=== PATIENT | male | born 1995 | race Caucasian/White ===

== ENCOUNTER 2018-05-02 11:17 | Outpatient (CLI) | payer MEDICAID, OTHER ==
[2018-05-02 19:26] LABS: ALBUMIN 4.3 g/dL (3.2-5.5); ALBUMIN/GLOBULIN RATIO 1.1 (1.0-2.2); ALKALINE PHOSPHATASE 126 IU/L (42-121); ALT ALANINE AMINOTRANSFERASE 27 IU/L (10-60); AST ASPARTATE AMINOTRANSFERASE 27 IU/L (10-42); BILIRUBIN,TOTAL 0.3 mg/dL (0.2-1.0); BUN - BLOOD UREA NITROGEN 25 mg/dL (6-20); CALCIUM 9.4 mg/dL (8.5-10.3); CARBON DIOXIDE - CO2 26 mmol/L (21-32); CHLORIDE 105 mmol/L (101-111); CHOL/HDL RATIO 2.6 (<5.0); CHOLESTEROL 164 mg/dL; CREATININE 0.9 mg/dL (0.6-1.2); GFR - MDRD 104 (>89); GLUCOSE 93 mg/dL (70-100); HDL CHOLESTEROL 63 mg/dL; LDL CHOLESTEROL,CALCULATED 83 mg/dL; LDL/HDL RATIO 1.3 (<3.6); SODIUM 139 mmol/L (135-145); TOTAL PROTEIN 8.3 g/dL (6.7-8.2); VLDL CHOLESTEROL 18 mg/dL
[2018-05-02 19:35] LABS: HB2 TOTAL 15.5 g/dL; HEMOGLOBIN A1C 0.51 g/dL; HEMOGLOBIN A1C % 5.2 % (4.6-6.2)
== END 2018-05-02 23:59 | disposition home or self-care (01) ==
LOC: LAB.N 11:17
PROVIDERS: ATTEND Licensed Practical Nurse
DX: Z79.899 Other long term (current) drug therapy (principal)
CPT/HCPCS: 36415; 80053; 80061; 83036; 83721

== ENCOUNTER 2019-03-04 08:00 | Outpatient (CLI) | payer MEDICAID ==
[2019-03-04 17:13] LABS: H. PYLORIS ANTIGEN STL POSITIVE (Negative)
== END 2019-03-04 23:59 | disposition home or self-care (01) ==
LOC: LAB.R 08:00
PROVIDERS: ATTEND Family Medicine
DX: K52.9 Noninfective gastroenteritis and colitis, unspecified (principal)
CPT/HCPCS: 81599; 82274; 83630; 87045; 87046; 87177; 87209; 87329; 87338; 87493

== ENCOUNTER 2020-02-03 15:47 | Emergency (ER) | payer MEDICARE ==
[2020-02-03 16:14] LABS: BASOPHILS # (AUTO) 0.1 10^3/uL (0.0-0.1); BASOPHILS % (AUTO) 0.8 %; EOSINOPHILS # (AUTO) 0.1 10^3/uL (0.0-0.7); EOSINOPHILS % (AUTO) 1.3 %; HGB - HEMOGLOBIN 13.8 g/dL (14.0-18.0); LYMPHOCYTES % (AUTO) 12.6 %; MEAN CORPUSCULAR HEMOGLOBIN 27.5 pg (27.0-31.0); MEAN CORPUSCULAR HGB CONC 32.5 g/dL (32.0-36.0); MEAN CORPUSCULAR VOLUME 84.8 fL (80.0-94.0); MEAN PLATELET VOLUME 8.7 fL (7.4-11.4); MONOCYTES # (AUTO) 0.5 10^3/uL (0.0-1.0); MONOCYTES % (AUTO) 6.3 %; NEUTROPHILS # (AUTO) 6.1 10^3/uL (1.5-6.6); NEUTROPHILS % (AUTO) 78.6 %; PLT - PLATELET COUNT 233 10^3/uL (130-450); RED BLOOD COUNT 5.01 10^6/uL (4.70-6.10); RED CELL DISTRIBUTION WIDTH 12.8 % (12.0-15.0); WHITE BLOOD COUNT 7.8 x10^3/uL (4.8-10.8)
[2020-02-03 16:30] LABS: ACETAMINOPHEN < 10 ug/mL (10-30); ALBUMIN 4.8 g/dL (3.2-5.5); ALBUMIN/GLOBULIN RATIO 1.4 (1.0-2.2); ALKALINE PHOSPHATASE 73 IU/L (42-121); ALT ALANINE AMINOTRANSFERASE 14 IU/L (10-60); AST ASPARTATE AMINOTRANSFERASE 18 IU/L (10-42); BILIRUBIN,TOTAL 0.7 mg/dL (0.2-1.0); BUN - BLOOD UREA NITROGEN 15 mg/dL (6-20); CALCIUM 9.3 mg/dL (8.5-10.3); CARBON DIOXIDE - CO2 23 mmol/L (21-32); CHLORIDE 105 mmol/L (101-111); CREATININE 1.1 mg/dL (0.6-1.2); GLUCOSE 89 mg/dL (70-100); LIPASE 28 U/L (22-51); SALICYLATE < 6.0 mg/dL; SODIUM 139 mmol/L (135-145); TOTAL PROTEIN 8.3 g/dL (6.7-8.2)
--- NOTE | 2020-02-03 16:59 | ED Physician Documentation ---
History of Present Illness - Stated complaint Stated Complaint: MHE - Chief complaint Chief Complaint: MHE - History obtained from History obtained from: Patient, Family (mom) - Additonal information Additional information: 24-year-old with history of schizophrenia tried overdosing by taking 20 Risperdal about midnight last night. [place] sleepy but otherwise no ill effects. Would like to be hospitalized. Review of Systems Ten Systems: 10 systems reviewed and negative Constitutional: reports: Reviewed and negative Nose: reports: Reviewed and negative Throat: reports: Reviewed and negative Cardiac: reports: Reviewed and negative Respiratory: reports: Reviewed and negative PD PAST MEDICAL HISTORY - Present Medications Home Medications: Ambulatory Orders Medication Instructions Recorded Confirmed risperiDONE [Risperidone] 3 mg PO BID 02/03/20 02/03/20 - Allergies Allergies/Adverse Reactions: Allergies Allergy/AdvReac Type Severity Reaction Status Date / Time No Known Drug Allergies Allergy Verified 02/03/20 20:14 PD ED PE NORMAL - Vitals Vital signs reviewed: Yes - General General: Alert and oriented X 3 (Blunted affect, poor eye contact) - HEENT HEENT: PERRL - Neck Neck: Supple, no meningeal sign, No bony TTP - Cardiac Cardiac: RRR, No murmur - Respiratory Respiratory: No respiratory distress, Clear bilaterally - Abdomen Abdomen: Soft, Non tender - Back Back: No CVA TTP, No spinal TTP - Derm Derm: Normal color, Warm and dry - Extremities Extremities: No edema, No calf tenderness / cord - Neuro Neuro: Alert and oriented X 3, Normal speech Results - Vitals Vitals: Vital Signs - 24 hr 02/04/20 02/04/20 06:48 14:00 Temperature 36.5 C Heart Rate 59 L 68 Respiratory 14 16 Rate Blood Pressure 101/59 L 117/83 H O2 Saturation 98 100 Oxygen O2 Source Room air - EKG (time done) 1801 Rate: Rate (enter#) (88) Rhythm: NSR Bouton: Normal Intervals: Normal OK QRS: Normal Ischemia: Normal ST segments Computer interpretation: Agree with computer - Labs Labs: Laboratory Tests 02/03/20 02/03/20 02/03/20 16:08 16:08 16:08 WBC 7.8 RBC 5.01 Hgb 13.8 L Hct 42.5 MCV 84.8 MCH 27.5 MCHC 32.5 RDW 12.8 Plt Count 233 MPV 8.7 Neut # (Auto) 6.1 Lymph # (Auto) 1.0 L Bartholomew # (Auto) 0.5 Eos # (Auto) 0.1 Baso # (Auto) 0.1 Absolute Nucleated RBC 0.00 Nucleated RBC % 0.0 Sodium 139 Potassium 3.7 Chloride 105 Carbon Dioxide 23 Anion Gap 11.0 BUN 15 Creatinine 1.1 Estimated GFR (MDRD) 81 L Glucose 89 Calcium 9.3 Total Bilirubin 0.7 AST 18 ALT 14 Alkaline Phosphatase 73 Total Protein 8.3 H Albumin 4.8 Globulin 3.5 Albumin/Globulin Ratio 1.4 Lipase 28 TSH 1.03 Urine Color Urine Clarity Urine pH Ur Specific [place] Urine Protein Urine Glucose (UA) Urine Ketones Urine Occult Blood Urine Nitrite Urine Bilirubin Urine Urobilinogen Ur Leukocyte Esterase Ur Microscopic Review Urine Culture Comments Salicylates < 6.0 Urine Opiates Screen Ur Oxycodone Screen Urine Methadone Screen Ur Propoxyphene Screen Acetaminophen < 10 L Ur Barbiturates Screen Ur Tricyclics Screen Ur Phencyclidine Scrn Ur Amphetamine Screen U Methamphetamines Scrn U Benzodiazepines Scrn Urine Cocaine Screen U Cannabinoids Screen Ethyl Alcohol < 5.0 02/03/20 16:16 WBC RBC Hgb Hct MCV MCH MCHC RDW Plt Count MPV Neut # (Auto) Lymph # (Auto) Bartholomew # (Auto) Eos # (Auto) Baso # (Auto) Absolute Nucleated RBC Nucleated RBC % Sodium Potassium Chloride Carbon Dioxide Anion Gap BUN Creatinine Estimated GFR (MDRD) Glucose Calcium Total Bilirubin AST ALT Alkaline Phosphatase Total Protein Albumin Globulin Albumin/Globulin Ratio Lipase TSH Urine Color YELLOW Urine Clarity CLEAR Urine pH 6.0 Ur Specific [place] 1.025 Urine Protein NEGATIVE Urine Glucose (UA) NEGATIVE Urine Ketones 15 H Urine Occult Blood NEGATIVE Urine Nitrite NEGATIVE Urine Bilirubin NEGATIVE Urine Urobilinogen 0.2 (NORMAL) Ur Leukocyte Esterase NEGATIVE Ur Microscopic Review NOT INDICATED Urine Culture Comments NOT INDICATED Salicylates Urine Opiates Screen NEGATIVE Ur Oxycodone Screen NEGATIVE Urine Methadone Screen NEGATIVE Ur Propoxyphene Screen NEGATIVE Acetaminophen Ur Barbiturates Screen NEGATIVE Ur Tricyclics Screen NEGATIVE Ur Phencyclidine Scrn NEGATIVE Ur Amphetamine Screen NEGATIVE U Methamphetamines Scrn NEGATIVE U Benzodiazepines Scrn NEGATIVE Urine Cocaine Screen NEGATIVE U Cannabinoids Screen NEGATIVE Ethyl Alcohol PD MEDICAL DECISION MAKING - ED course ED course: Patient is medically stable for psychiatric evaluation Seen by social work, referral sent to [facility]. We called Min[facility] fre[facility] a little after 9 PM and was told that there was no clinician on overnight and they would not be able to review the chart tonight. Departure - Departure Disposition: [facility] Hosp/Unit DC/Xfer Clinical Impression: Depression Qualifiers: Depression Type: major depressive disorder Major depression recurrence: recurrent Active/Remission status: currently active Major depression episode severity: moderate Qualified Code(s): F33.1 - Major depressive disorder, recurrent, moderate Schizophrenia Qualifiers: Schizophrenia type: unspecified Qualified Code(s): F20.9 - Schizophrenia, unspecified Condition: Stable Discharge Date/Time: 02/04/20 15:53
[2020-02-03 17:11] LABS: MUDS CUTOFF CONCENTRATIONS CUTOFF CONC BELOW:
[2020-02-03 17:18] LABS: BILIRUBIN,URINE NEGATIVE (NEGATIVE); GLUCOSE, URINE (UA) NEGATIVE (NEGATIVE); KETONES,URINE (UA) 15 mg/dL (NEGATIVE); LEUKOCYTE ESTERASE, URINE NEGATIVE (NEGATIVE); NITRITE,URINE NEGATIVE (NEGATIVE); OCCULT BLOOD,URINE NEGATIVE (NEGATIVE); PROTEIN,URINE NEGATIVE (NEGATIVE); UROBILINOGEN,URINE 0.2 (NORMAL) E.U./dL (NORMAL)
[2020-02-03 17:19] LABS: CLARITY,URINE CLEAR (CLEAR)
[2020-02-03 17:32] LABS: AMPHETAMINE SCREEN,URINE NEGATIVE (NEGATIVE); BENZODIAZEPINES SCREEN, URINE NEGATIVE (NEGATIVE); COCAINE SCREEN URINE NEGATIVE (NEGATIVE); METHADONE SCREEN, URINE NEGATIVE (NEGATIVE); METHAMPHETAMINES SCREEN, URINE NEGATIVE (NEGATIVE); OPIATE SCREEN, URINE NEGATIVE (NEGATIVE); OXYCODONE SCREEN, URINE NEGATIVE (NEGATIVE); PROPOXYPHENE SCREEN, URINE NEGATIVE (NEGATIVE); TRICYCLIC ANTIDEPRESSANT,URINE NEGATIVE (NEGATIVE)
--- NOTE | 2020-02-04 12:28 | ED Physician Documentation ---
ED Addendum - Addendum Addendum: 02/04/20 12:27 Patient was signed out to me at change of shift by off going emergency [address], pending group social worker evaluation and final disposition. Patient was reevaluated by social work and placement was arranged at [facility]. Patient is going voluntarily and has been stable throughout his stay in the emergency department.
[2020-02-04 15:19] VITALS: BP 117/83
== END 2020-02-04 15:53 ==
LOC: EDBD → ED 15:47 → MERGE 15:47 → ED 02-04 15:53
DX: F33.1 Major depressive disorder, recurrent, moderate (principal); F20.9 Schizophrenia, unspecified
CPT/HCPCS: 36415; 80053; 80306; 80307; 80320; 80329; 81001; 81003; 83690; 84443; 85025; 87086; 93005; 99283; 99285

== ENCOUNTER 2020-10-31 08:00 | Outpatient (CLI) | payer MEDICARE, MEDICAID ==
[2020-10-31 19:09] LABS: H. PYLORIS ANTIGEN STL NEGATIVE (Negative)
== END 2020-10-31 23:59 | disposition home or self-care (01) ==
LOC: LAB.R 08:00
PROVIDERS: ATTEND Nurse Practitioner Family
DX: A04.8 Other specified bacterial intestinal infections (principal); B96.81 Helicobacter pylori [H. pylori] as the cause of diseases classified elsewhere
CPT/HCPCS: 87338

== ENCOUNTER 2020-11-14 22:30 | Inpatient (IN) | payer MEDICARE, MEDICAID ==
--- NOTE | 2020-11-14 23:00 | ED Physician Documentation ---
PD HPI ABD PAIN - Stated complaint Stated Complaint: ABD PX - Chief complaint Chief Complaint: Abd Pain - History obtained from History obtained from: Patient, Family (mom) - History of Present Illness Timing - onset: How many weeks ago (3-4) Timing - duration: Weeks (3-4) Timing - details: Gradual onset, Still present (got worse/consistent the past 1- 2 days, with nausea and increased pain.), Intermittant (for the past 3-4 weeks, timed throughout the day. Less appetite and pain occurs after eating.) Quality: Cramping, Aching, Pain Location: Epigastric, Periumbilical Radiation: No: Chest, Right flank, Upper back Improved by: Position (lying on side) Worsened by: Eating, Palpation Associated symptoms: Nausea, Constipation (He states stools have been firm at times and soft at times. No BM for past 2-3 days.). No: Fever, Vomiting, Diarrhea, Melena, Hematochezia Similar symptoms before: Has not had sx before Recently seen: Not recently seen Review of Systems Constitutional: denies: Fever, Chills, Myalgias Nose: denies: Rhinorrhea / runny nose, Congestion Throat: denies: Sore throat Respiratory: denies: Cough GI: reports: Abdominal Pain, Nausea. denies: Vomiting, Constipation (but has had less stools the past few days, prior to that was soft then firm pattern undulating the past few weeks.), Diarrhea, Bloody / black stool : denies: Dysuria, Frequency Neurologic: reports: Generalized weakness. denies: Near syncope Endocrine: reports: Weight loss (several lbs in the past few weeks.). denies: Easy bruising / bleeding Immunocompromised: denies: Immunocompromised PD PAST MEDICAL HISTORY - Past Medical History Cardiovascular: None Respiratory: None Neuro: None Endocrine/Autoimmune: None GI: None : None HEENT: None Psych: Schizophrenia Musculoskeletal: None Derm: None - Past Surgical History Past Surgical History: Yes HEENT: Other - Present Medications Home Medications: Ambulatory Orders Medication Instructions Recorded Confirmed polyethylene glycoL 3350 [Miralax] 17 gm PO DAILY PRN #10 packet 02/04/16 11/15/20 risperiDONE [Risperidone] 3 mg PO BID 02/03/20 11/15/20 - Allergies Allergies/Adverse Reactions: Allergies Allergy/AdvReac Type Severity Reaction Status Date / Time No Known Drug Allergies Allergy Verified 11/14/20 22:41 - Social History Does the pt smoke?: No Smoking Status: Never smoker Does the pt drink ETOH?: No Does the pt have substance abuse?: No - Immunizations Immunizations are current?: Yes PD ED PE NORMAL - Vitals Vital signs reviewed: Yes - General General: Alert and oriented X 3, Well developed/nourished, Other (having some upper abd pain) - HEENT HEENT: Ears normal, Pharynx benign - Neck Neck: Supple, no meningeal sign, No adenopathy - Cardiac Cardiac: RRR, No murmur - Respiratory Respiratory: Clear bilaterally - Abdomen Abdomen: Soft, Non distended, No organomegaly, Other (Tender in the epigastric to right upper abdomen. Also some tenderness periumbilical. There is no percussion or rebound tenderness at this time.) - Male Male : Deferred - Rectal Rectal: Deferred - Back Back: No CVA TTP - Derm Derm: Normal color, Warm and dry - Extremities Extremities: No edema, No calf tenderness / cord - Neuro Neuro: Alert and oriented X 3, No motor deficit, Normal speech Eye Opening: Spontaneous Motor: Obeys Commands Verbal: Oriented GCS Score: 15 - Psych Psych: No: Normal affect (somewhat flat, but very pleasant and polite. Defers to mom for answering questions often. ) Results - Vitals Vitals: Vital Signs - 24 hr 11/14/20 11/14/20 11/15/20 22:36 22:41 00:20 Temperature 36.1 C L 36.1 C L Heart Rate 90 90 80 Respiratory 14 14 15 Rate Blood Pressure 124/81 H 124/80 117/80 O2 Saturation 99 99 99 11/15/20 11/15/20 11/15/20 01:05 01:11 01:57 Temperature Heart Rate 88 66 Respiratory 15 15 15 Rate Blood Pressure 124/88 H 104/62 O2 Saturation 99 100 11/15/20 11/15/20 11/15/20 02:43 03:24 03:42 Temperature Heart Rate 72 50 L 50 L Respiratory 15 14 13 Rate Blood Pressure 101/69 111/71 O2 Saturation 100 100 100 11/15/20 04:10 Temperature 37.1 C Heart Rate 62 Respiratory 15 Rate Blood Pressure 115/85 H O2 Saturation 100 Oxygen O2 Source Room air - Labs Labs: Laboratory Tests 11/14/20 11/14/20 11/14/20 23:30 23:30 23:30 WBC 9.4 RBC 4.73 Hgb 13.1 L Hct 40.7 L MCV 86.0 MCH 27.7 MCHC 32.2 RDW 12.2 Plt Count 246 MPV 8.4 Neut # (Auto) 7.7 H Lymph # (Auto) 1.0 L Hughes # (Auto) 0.4 Eos # (Auto) 0.2 Baso # (Auto) 0.1 Absolute Nucleated RBC 0.00 Nucleated RBC % 0.0 ESR 29 H Sodium 139 Potassium 3.8 Chloride 102 Carbon Dioxide 27 Anion Gap 10.0 BUN 20 Creatinine 1.0 Estimated GFR (MDRD) 90 Glucose 121 H Calcium 9.4 Total Bilirubin 0.4 AST 21 ALT 26 Alkaline Phosphatase 79 C-Reactive Protein 2.4 H Total Protein 7.8 Albumin 4.3 Globulin 3.5 Albumin/Globulin Ratio 1.2 Lipase 28 TSH Urine Color Urine Clarity Urine pH Ur Specific [place] Urine Protein Urine Glucose (UA) Urine Ketones Urine Occult Blood Urine Nitrite Urine Bilirubin Urine Urobilinogen Ur Leukocyte Esterase Ur Microscopic Review Urine Culture Comments 11/14/20 11/15/20 23:30 01:00 WBC RBC Hgb Hct MCV MCH MCHC RDW Plt Count MPV Neut # (Auto) Lymph # (Auto) Hughes # (Auto) Eos # (Auto) Baso # (Auto) Absolute Nucleated RBC Nucleated RBC % ESR Sodium Potassium Chloride Carbon Dioxide Anion Gap BUN Creatinine Estimated GFR (MDRD) Glucose Calcium Total Bilirubin AST ALT Alkaline Phosphatase C-Reactive Protein Total Protein Albumin Globulin Albumin/Globulin Ratio Lipase TSH 1.50 Urine Color YELLOW Urine Clarity CLEAR Urine pH 6.0 Ur Specific [place] 1.015 Urine Protein NEGATIVE Urine Glucose (UA) NEGATIVE Urine Ketones NEGATIVE Urine Occult Blood NEGATIVE Urine Nitrite NEGATIVE Urine Bilirubin NEGATIVE Urine Urobilinogen 0.2 (NORMAL) Ur Leukocyte Esterase NEGATIVE Ur Microscopic Review NOT INDICATED Urine Culture Comments NOT INDICATED - Rads (name of study) abd CT Radiology: Prelim report reviewed (gallbladder wall thickening and pericholic fluid/edema. No bowel wall thickening nor acute process. ), See rad report RUQ U/S Radiology: Prelim report reviewed (similar to CT with stone in neck of GB, wall thickening and edema and mild pericholecystic fluid. CBD not enlarged. Normal i ntrahepatic ducts. ), See rad report PD MEDICAL DECISION MAKING - ED course Complexity details: reviewed results (CT showing apparent acute cholecystitis. Ultrasound done to confirm and to evaluate the common bile duct more exactly.), re-evaluated patient, considered differential (Upper abdominal tenderness. Consider immune inflammatory process such as colitis or Crohn's though no family history. Also consider gastritis or gallbladder or pancreatitis. Less likely appendix.), d/w patient, d/w family (mom present in the room) Departure - Departure Disposition: ED Transfer to [facility] Clinical Impression: Acute cholecystitis Abdominal pain Qualifiers: Abdominal location: upper abdomen, unspecified Qualified Code(s): R10.10 - Upper abdominal pain, unspecified Condition: Stable Record reviewed to determine appropriate education?: Yes
[2020-11-14] MEDS ORDERED: SODIUM CHLORIDE 0.9% 1,000 ML IV STA (23:15)
[2020-11-14] MEDS ORDERED: KETOROLAC 15 MG/ML VIAL IVP STA (23:15)
[2020-11-14] MEDS ORDERED: ONDANSETRON 4 MG/2 ML VIAL IVP STA (23:15)
[2020-11-14] MEDS ORDERED: IOVERSOL 320 100 ML VIAL IVP ONE (23:34)
[2020-11-14 23:37] LABS: BASOPHILS # (AUTO) 0.1 10^3/uL (0.0-0.1); BASOPHILS % (AUTO) 0.7 %; EOSINOPHILS # (AUTO) 0.2 10^3/uL (0.0-0.7); EOSINOPHILS % (AUTO) 1.7 %; HCT - HEMATOCRIT 40.7 % (42.0-52.0); HGB - HEMOGLOBIN 13.1 g/dL (14.0-18.0); LYMPHOCYTES % (AUTO) 10.3 %; MEAN CORPUSCULAR HEMOGLOBIN 27.7 pg (27.0-31.0); MEAN CORPUSCULAR HGB CONC 32.2 g/dL (32.0-36.0); MEAN PLATELET VOLUME 8.4 fL (7.4-11.4); MONOCYTES # (AUTO) 0.4 10^3/uL (0.0-1.0); MONOCYTES % (AUTO) 4.5 %; NEUTROPHILS # (AUTO) 7.7 10^3/uL (1.5-6.6); NEUTROPHILS % (AUTO) 82.5 %; PLT - PLATELET COUNT 246 10^3/uL (130-450); RED BLOOD COUNT 4.73 10^6/uL (4.70-6.10); RED CELL DISTRIBUTION WIDTH 12.2 % (12.0-15.0); WHITE BLOOD COUNT 9.4 x10^3/uL (4.8-10.8)
[2020-11-14 23:55] LABS: ALBUMIN 4.3 g/dL (3.2-5.5); ALBUMIN/GLOBULIN RATIO 1.2 (1.0-2.2); BILIRUBIN,TOTAL 0.4 mg/dL (0.2-1.0); CALCIUM 9.4 mg/dL (8.5-10.3); CRP - C-REACTIVE PROTEIN 2.4 mg/dL (0-1.0); POTASSIUM 3.8 mmol/L (3.5-5.0); TOTAL PROTEIN 7.8 g/dL (6.7-8.2)
[2020-11-15] MEDS ORDERED: IOVERSOL 320 100 ML VIAL IVP ONE (00:30)
[2020-11-15 01:16] LABS: BILIRUBIN,URINE NEGATIVE (NEGATIVE); GLUCOSE, URINE (UA) NEGATIVE (NEGATIVE); KETONES,URINE (UA) NEGATIVE (NEGATIVE); LEUKOCYTE ESTERASE, URINE NEGATIVE (NEGATIVE); NITRITE,URINE NEGATIVE (NEGATIVE); OCCULT BLOOD,URINE NEGATIVE (NEGATIVE); PROTEIN,URINE NEGATIVE (NEGATIVE); UROBILINOGEN,URINE 0.2 (NORMAL) E.U./dL (NORMAL)
[2020-11-15 01:18] LABS: CLARITY,URINE CLEAR (CLEAR)
[2020-11-15] MEDS ORDERED: PIPERACILLIN/TAZOBACTAM 3.375 GM in SODIUM CHLORIDE 0.9% MINIBAG 100 ML IV STA (03:57)
[2020-11-15] MEDS ORDERED: ENOXAPARIN 40 MG/0.4 ML SYRINGE SUBQ SCH (04:20)
[2020-11-15] MEDS ORDERED: ONDANSETRON 4 MG/2 ML VIAL IVP PRN ×3 (04:22→20:03)
[2020-11-15] MEDS ORDERED: HYDROmorphone 0.5 MG/0.5 ML SYRINGE IVP PRN ×3 (04:23→20:03)
[2020-11-15] MEDS: D5NS W/20 MEQ KCL 1,000 ML IV SCH ×2 (05:05→20:58)
[2020-11-15] MEDS: ACETAMINOPHEN 1,000 MG/100 ML 100 ML IV SCH ×3 (05:11→20:44)
[2020-11-15] MEDS: methocarbamoL 500 MG TABLET PO SCH ×3 (05:14→20:43)
[2020-11-15 05:58] LABS: ALBUMIN/GLOBULIN RATIO 1.1 (1.0-2.2); BILIRUBIN,TOTAL 0.7 mg/dL (0.2-1.0); CALCIUM 9.1 mg/dL (8.5-10.3); CREATININE 0.9 mg/dL (0.6-1.2); TOTAL PROTEIN 7.5 g/dL (6.7-8.2)
[2020-11-15] MEDS: PIPERACILLIN/TAZOBACTAM 3.375 GM in SODIUM CHLORIDE 0.9% MINIBAG 100 ML IV SCH ×3 (06:34→22:35)
--- NOTE | 2020-11-15 07:10 | CT Report ---
PROCEDURE: Abdomen/Pelvis W INDICATIONS: Abdominal pain, acute, nonlocalized CONTRAST: IV CONTRAST: Optiray 320 ml: 100 PO CONTRAST: *NO PO CONTRAST TECHNIQUE: After the administration of weight appropriate dose of intravenous contrast, 5 mm thick sections acqu ired from the diaphragms to the symphysis. 5 mm thick coronal and sagittal reformats were acquired. For radiation dose reduction, the following was used: automated exposure control, adjustment of mA and/or kV according to patient size. COMPARISON: None. FINDINGS: Image quality: Excellent. ABDOMEN: Lung bases: Lung bases are clear. Heart size is normal. Solid organs: Liver and spleen are normal in size and enhancement. Gallbladder demonstrates wall th ickening and mild pericholecystic stranding. No evidence for gallstones. Biliary system is non dilat ed. Pancreas enhances normally. No adrenal nodules. Kidneys demonstrate normal size and enhancemen t, without hydronephrosis. Visualized course of the bilateral ureters are normal. No hydroureter. Peritoneum and bowel: Bowel loops demonstrate normal wall thickness and caliber. No free fluid or a ir. Normal appendix. Nodes and vessels: No retroperitoneal or mesenteric adenopathy by size criteria. Aorta and inferior vena cava are normal in size. Miscellaneous: No ventral hernias. PELVIS: Genitourinary: Bladder wall thickness is normal. Miscellaneous: No inguinal hernias or adenopathy. Bones: No suspicious bony lesions. No acute vertebral body compression fractures. IMPRESSION: 1. Abnormal gallbladder wall thickening and pericholecystic inflammatory changes suggestive of acute cholecystitis. Consider further evaluation with ultrasound. 2. Normal appendix. No significant discrepancy with initial interpretation by overnight radiologist. Reviewed by: Robbie Brown MD on 11/15/2020 7:08 AM PDT Approved by: Robbie Brown MD on 11/15/2020 7:08 AM PDT Station ID: [id number]
--- NOTE | 2020-11-15 07:46 | SURGERY HX AND PHYSICAL(T) ---
Surgical History & Physical - Chief Complaint/HPI Chief Complaint: Abdominal pain/acute cholecystitis. History of Present Illness: 25-year-old male presenting right upper quadrant abdominal pain. Associated nausea. No other pertinent symptoms. No significant family history. Notable past surgical history to include none. Patient does not use tobacco. No history of heart attack or stroke. Patient takes no systemic anticoagulation. - PMH/PSH/Social Hx Does the pt have a hx of MRSA?: No Neurological History: None Eyes, Ears, Nose, Throat: None Cardiovascular: None Respiratory: None Skin: None Endocrine/Autoimmune: None Gastrointestinal: None Urinary: None Musculoskeletal: None Blood Disorders: None Psychiatric: Schizophrenia Eyes Ears Nose Throat (EENT): Other Smoking Status: Never smoker Does the pt drink ETOH?: No Does the pt have substance abuse?: No - Home Meds and Allergies Home Medications: risperiDONE [Risperidone] 3 mg PO BID 02/03/20 Allergies/Adverse Reactions: Allergies Allergy/AdvReac Type Severity Reaction Status Date / Time No Known Drug Allergies Allergy Verified 11/14/20 22:41 - Review of Systems Constitutional: Fatigue, Malaise Gastrointestinal: Nausea, Abdominal pain - Vital Signs Heart Rate: 62 Blood Pressure: 115/85 Temperature: 37.5 C Respiratory Rate: 16 O2 Saturation: 100 Weight (kg): 62 kg Height: 1.7 m - Physical Exam Comments/Other: General Appearance: positive: No acute distress Eyes Bilateral: positive: Normal inspection ENT: positive: ENT inspection nml Neck: positive: Nml inspection Respiratory: positive: Chest non-tender, No respiratory distress, Breath sounds nml. negative: Wheezes, Rales, Rhonchi Cardiovascular: positive: Regular rate & rhythm Abdomen: positive: No distention, Other. negative: Guarding, Rebound Extremities: positive: Non-tender, Full ROM, Nml appearance Neurologic/Psychiatric: positive: Oriented x3, CN's nml (2-12) - Patient Review Patient Review: Problems were reviewed with the patient during this visit. Medications were reviewed with the patient during this visit. Allergies were reviewed this patient during this visit. Pertinent Tests Reviewed: All pertitent test for this patient were reviewed. - Assessment & Plan Assessment and Plan: 25 year-old male with acute cholecystitis. Admitted bowel rest. IV antibiotics. Discussed with patient and mother indication for operative intervention. Risk and benefits discussed questions answered informed consent was obtained CT abdomen pelvis impression: 1. Abnormal gallbladder wall thickening and pericholecystic inflammatory changes consistent and suggestive of acute cholecystitis. Consider further evaluation with ultrasound. Normal appendix 2. Normal appendix. Abdominal ultrasound impression: 1. Cholelithiasis and findings compatible with acute cholecystitis. 2. No significant discrepancy with initial interpretation by overnight radiologist.
--- NOTE | 2020-11-15 08:36 | ANESTHESIA ---
Pre-Anesthesia VS, & Labs - Diagnosis cholecystis - Procedure laparoscopic cholecystectomy Vital Signs: Temp Pulse Resp BP Pulse Ox 37.5 C 62 16 115/85 H 100 11/15/20 07:46 11/15/20 07:46 11/15/20 07:46 11/15/20 07:46 11/15/20 07:46 Height: 5 ft 7 in Weight (kg): 62 kg Body Mass Index: 21.4 BMI Classification: Healthy weight - NPO >8 hours - Lab Results Current Lab Results: Laboratory Tests 11/15/20 05:32: Sodium 141, Potassium 4.0, Chloride 105, Carbon Dioxide 24, Anion Gap 12.0, BUN 18, Creatinine 0.9, Estimated GFR (MDRD) 101, Glucose 97, Calcium 9.1, Total Bilirubin 0.7, AST 23, ALT 24, Alkaline Phosphatase 84, Total Protein 7.5, Albumin 4.0, Globulin 3.5, Albumin/Globulin Ratio 1.1 11/14/20 23:30: TSH 1.50 11/14/20 23:30: Sodium 139, Potassium 3.8, Chloride 102, Carbon Dioxide 27, Anion Gap 10.0, BUN 20, Creatinine 1.0, Estimated GFR (MDRD) 90, Glucose 121 H, Calcium 9.4, Total Bilirubin 0.4, AST 21, ALT 26, Alkaline Phosphatase 79, C- Reactive Protein 2.4 H, Total Protein 7.8, Albumin 4.3, Globulin 3.5, Albumin/Gl obulin Ratio 1.2, Lipase 28 11/14/20 23:30: ESR 29 H 11/14/20 23:30: WBC 9.4, RBC 4.73, Hgb 13.1 L, Hct 40.7 L, MCV 86.0, MCH 27.7, MCHC 32.2, RDW 12.2, Plt Count 246, MPV 8.4, Neut # (Auto) 7.7 H, Lymph # (Auto) 1.0 L, Edwards # (Auto) 0.4, Eos # (Auto) 0.2, Baso # (Auto) 0.1, Absolute Nucleated RBC 0.00, Nucleated RBC % 0.0 Lab results reviewed: Yes Fish Bones: 11/14/20 23:30 11/15/20 05:32 Home Medications and Allergies Active Medications Hydromorphone HCl (Hydromorphone 0.5 Mg/0.5 Ml Syringe) 0.5 mg IVP Q2H PRN PRN Reason: PAIN Potassium Chloride/Dextrose/Sod Cl (D5ns W/20 Meq Kcl) 1,000 mls @ 125 mls/hr IV .Q8H [facility] Last Admin: 11/15/20 05:05 Dose: 125 mls/hr Documented by: Acetaminophen (Ofirmev) 100 mls @ 400 mls/hr IV Q6HR [facility] Last Infusion: 11/15/20 05:37 Dose: Infused Documented by: Piperacillin Sod/Tazobactam (Sod 3.375 gm/ Sodium Chloride) 100 mls @ 25 mls/hr IV Q8H [facility] Last Admin: 11/15/20 06:34 Dose: 25 mls/hr Documented by: Methocarbamol (Methocarbamol 500 Mg Tablet) 500 mg PO Q6HR [facility] Last Admin: 11/15/20 05:14 Dose: 500 mg Documented by: Ondansetron HCl (Ondansetron 4 Mg/2 Ml Vial) 4 mg IVP Q6HR PRN PRN Reason: Nausea / Vomiting Risperidone (Risperidone 1 Mg Tablet) 3 mg PO BID [facility] risperiDONE [Risperidone] 3 mg PO BID 02/03/20 Allergies/Adverse Reactions: Allergies Allergy/AdvReac Type Severity Reaction Status Date / Time No Known Drug Allergies Allergy Verified 11/14/20 22:41 Anes History & Medical History - Anesthetic History Anesthesia Complications: reports: No previous complications Family history of Anesthesia Complications: Denies Family history of Malignant Hyperthermia: Denies - Medical History Cardiovascular: reports: None Pulmonary: reports: None Gastrointestinal: reports: None Urinary: reports: None Neuro: reports: None Musculoskeletal: reports: None Endocrine/Autoimmune: reports: None Blood Disorders: reports: None Skin: reports: None Smoking Status: Never smoker Other Past Medical History: schizophrenia - Surgical History Eyes Ears Nose Throat (EENT): reports: Other (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
--- NOTE | 2020-11-15 08:59 | XRAY Report ---
PROCEDURE: Chest 1 View X-Ray INDICATIONS: preop TECHNIQUE: One view of the chest was acquired. COMPARISON: None FINDINGS: Surgical changes and devices: None. Lungs and pleura: No pleural effusions or pneumothorax. Lungs are clear. Mediastinum: Mediastinal contours appear normal. Heart size is normal. Bones and chest wall: No suspicious bony lesions. Overlying soft tissues appear unremarkable. IMPRESSION: Normal chest for age No significant discrepancy with initial interpretation by overnight radiologist. Reviewed by: Robbie Brown MD on 11/15/2020 8:57 AM PDT Approved by: Robbie Brown MD on 11/15/2020 8:57 AM PDT Station ID: [id number]
--- NOTE | 2020-11-15 09:02 | Ultrasound Report ---
PROCEDURE: Abdomen Limited INDICATIONS: upper abd pain; CT appears gallbladder thickening TECHNIQUE: Real-time scanning was performed of the abdominal and retroperitoneal organs, with image documentatio n. COMPARISON: CT from earlier same day FINDINGS: Liver: Liver is normal in size and homogeneous in echotexture. Gallbladder: The gallbladder contains gallstones and sludge. A 1.4 x 1.6 cm nonmobile stone is noted in the bladder neck. There is thickening and edema of the common bladder wall measuring between 4-9 m m in thickness. Possible trace pericholecystic fluid. Biliary ducts: Intrahepatic bile ducts are non-dilated. Extrahepatic bile duct caliber measures 4 m m. Normal is 6-7 mm or less in diameter, or 10 mm or less post-cholecystectomy. Pancreas: Visualized portions of the pancreas are sonographically normal. Kidneys: Right kidney is normal in size and echotexture. Right kidney measures 8.4 cm long. No hydr onephrosis or nephrolithiasis. No solid masses. IVC: Intrahepatic inferior vena cava is patent. Miscellaneous: No free abdominal fluid. IMPRESSION: Cholelithiasis and findings compatible with acute cholecystitis. No significant discrepancy with initial interpretation by overnight radiologist. Reviewed by: Robbie Brown MD on 11/15/2020 9:01 AM PDT Approved by: Robbie Brown MD on 11/15/2020 9:01 AM PDT Station ID: [id number]
--- NOTE | 2020-11-15 10:12 | PHARMACY PROGRESS NOTE ---
- Best Possible Medication History Admit Date and Time: 11/15/20 0420 Processed by: Nursing Medication History completed: Yes Patient Interview: Completed (MED REC COMPLETED BY NURSING) As the person ultimately responsible for medication therapy, providers are able to order a medication from an existing home medication list in [facility] via the "Reconcile Routine" prior to Confirmation of that medication by biomedical equipment support specialist. Such practice is discouraged except when the physician, in their clinical judgment, deems that a medical need exists for a medication without regard to previous use.
[2020-11-15] MEDS: risperiDONE 1 MG TABLET PO SCH ×2 (11:17→21:06)
[2020-11-15] MEDS ORDERED: fentaNYL 100 MCG/2 ML VIAL ONE (11:23)
[2020-11-15] MEDS ORDERED: MIDAZOLAM 2 MG/2 ML VIAL ONE (11:24)
[2020-11-15] MEDS ORDERED: PROPOFOL 200 MG/20 ML VIAL IVP ONE (11:24)
[2020-11-15] MEDS ORDERED: LIDOCAINE-MPF 2% 5 ML VIAL ONE (11:24)
[2020-11-15] MEDS ORDERED: DEXAMETHASONE 4 MG/ML VIAL ONE (11:25)
[2020-11-15] MEDS ORDERED: ROCURONIUM 50 MG/5 ML VIAL ONE (11:25)
[2020-11-15] MEDS ORDERED: ONDANSETRON 4 MG/2 ML VIAL ONE (11:25)
[2020-11-15] MEDS ORDERED: BUPIVACAINE 0.5%-EPI 1:200000 PF 30 ML VIAL ONE (11:35)
[2020-11-15] MEDS ORDERED: LIDOCAINE-MPF 1% 30 ML VIAL ONE (11:36)
[2020-11-15] MEDS ORDERED: IOTHALAMATE MEGLUMINE 50 ML VIAL IVP ONE ×2 (13:23→18:58)
[2020-11-15] MEDS ORDERED: IOTHALAMATE MEGLUMINE 50 ML VIAL ONE (13:39)
[2020-11-15] MEDS ORDERED: BUPIVACAINE 0.5%-EPI 1:200000 PF 30 ML VIAL SUBQ ONE ×2 (17:31)
[2020-11-15] MEDS ORDERED: LIDOCAINE 1% 50 ML MDV SUBQ ONE ×2 (17:32)
[2020-11-15] MEDS ORDERED: SODIUM CHLORIDE 0.9% 10 ML VIAL IVP ONE (17:41)
[2020-11-15] MEDS ORDERED: ROPIVACAINE 0.5% PF 20 ML AMPULE ONE (17:41)
[2020-11-15] MEDS ORDERED: KETOROLAC 30 MG/ML VIAL ONE (18:26)
[2020-11-15] MEDS ORDERED: SUGAMMADEX 200 MG/2 ML VIAL IVP ONE (18:26)
--- NOTE | 2020-11-15 19:10 | XRAY Report ---
PROCEDURE: OR Cholangiogram INDICATIONS: CHOLANGIOGRAM COMPARISON: None. FINDINGS: Biliary ducts: The surgeon injected contrast into the biliary ducts after cannulation of the cystic duct stump. Visualized intra- and extrahepatic bile ducts are normal in caliber, without strictures. No intraluminal filling defects to suggest retained ductal stones or sludge. No evidence for iatro genic ductal injury. Duodenum: Contrast flows promptly through the sphincter of Oddi into the duodenum, which appears nor mal in caliber. IMPRESSION: Normal postcholecystectomy cholangiogram. No biliary duct filling defect or stricture demonstrated. N o leakage of contrast material. Reviewed by: Carlos Farley MD on 11/15/2020 7:09 PM PDT Approved by: Carlos Farley MD on 11/15/2020 7:09 PM PDT Station ID: [id number]
[2020-11-15] MEDS ORDERED: ACETAMINOPHEN 325 MG TABLET PO PRN (19:33)
--- NOTE | 2020-11-15 19:35 | OPERATIVE REPORT ---
Operative Report - General Admit Date: 11/15/20 Procedure Date: 11/15/20 Planned Procedure: 1. Laparoscopic cholecystectomy 2. Diagnostic laparoscopy 3. Intraoperative cholangiogram 4. Other indicated procedure Pre-Op Diagnosis: Acute cholecystitis; cholelithiasis; abdominal pain Procedure Performed: 1. Diagnostic laparoscopy 2. Laparoscopic adhesiolysis 3. Open umbilical hernia repair 4. Laparoscopic cholecystectomy 5. Intraoperative cholangiogram 6. Transversus abdominis plane block per anesthesia Post Op Diagnosis: Same; acute on chronic cholecystitis w/ dense inflammatory change; NL gra - Procedure Note Primary Surgeon: Jeni Secondary Surgeon: Shantelle Anesthesia Provider: Boone Anesthesia Technique: General ET tube, Local Pathology: Gall bladder Estimated Blood Loss (mL): 200 Indications: See EMR Findings: 1. Dense adhesions 2. Acute on chronic cholecystitis 3. Normal cholangiogram 4. Critical view of safety achieved Complications: None - Other Other Information/Narrative: The patient was brought in the operating room, placed supine on the operating table. They were induced for general endotracheal anesthesia. They were offloaded and padded, both arms tucked. They were prepped and draped in the usual sterile fashion. Campbell catheter was placed. Time out was called and agreed to by all in the room. We planned an infraumbilical, circumlinear incision for open Ronna access. The umbilical stalk was divided and revealed an umbilical hernia. This was enlarged to offer access to the abdominal cavity which was without any complication. No inadvertent hollow viscous injury. And was insufflated to 15 mmHg without any complication. Adhesions noted and were sequentially taken once additional access was accomplished with the following secondary ports: 1. Epigastric 5mm 2. Midclavicular, Right upper quadrant 3. Anterior axillary line, Right subcostal The last port in the right lateral abdomen was placed after sharp adhesiolysis laparoscopically The abdomen was inspected and findings are as noted above. The table was placed in reverse Trendelenburg position with the right side up. Filmy adhesions between gallbladder & omentum, duodenum/transverse colon were lysed sharply. The dome of gallbladder was grasped with a grasper and retracted over the dome of the liver. The infundibulum was also grasped with an atraumatic grasper and retracted toward right lower quadrant. This maneuver exposed Calot's triangle. Please note the gall bladder appeared extensively inflamed with chronic inflammatory changes dense "leather-like" induration. This was likely acute on chronic cholecystitis. The peritoneum overlying the gallbladder infundibulum was then incised and the cystic duct and cystic artery were both identified and circumferentially dissected. A critical view of safety was established at this time, and included all of the followin. The hepatocystic triangle was clear of fat and fibrous tissue. 2. The lower one third of the gallbladder was from the liver to expose the cystic plate. 3. Only two structures were seen entering the gallbladder, which was documented by photography. The cystic artery was then doubly ligated (clip) and divided close to the gallbladder. We then began to carefully dissect and skeletonized the cystic duct. We singly clipped the neck of the gallbladder in anticipation of cholangiogram. We performed a small cystostomy at the level of the mid cystic duct and proceeded to place a ureteral catheter through this. We thereafter placed a clamp and after irrigating with saline proceeded to perform cholangiography with 50-50 mix of contrast dye. The second run which was saved into the medical record showed opacification of both the left and right intrahepatic ductal draining systems, and intact common bile duct which clearly drained unobstructed into the duodenum which was opa cified as well. With this complete we triply clipped the cystic duct distal to the cystostomy and divided the cystic duct without complication. The gallbladder was then dissected from surrounding peritoneal attachments by electrocautery. Again, dense adhesions for acute on chronic cholecystitis necessitated approaching this cautiously. Hemostasis was checked and gallbladder and contained bile were removed using an endoscopic retrieval bag placed through the umbilical port. Extensive attention was paid to assure hemostasis given the extent of the patient's inflammatory changes. This was achieved. Please note that any ductal stones at the level of the cystic duct were ``milked back into the gall bladder prior to ligating and dividing the duct. The gallbladder was passed off the table as a specimen. The gallbladder fossa was copiously irrigated with saline and hemostasis was obtained with electrocautery. There was no evidence of bleeding of the gallbladder fossa or cystic artery or leakage of the bile from the cystic duct stump. The Secondary 5 mm ports were removed under direct vision. We thereafter removed the umbilical access, Ronna port and closed the umbilical hernia as follows. Several [id number] 0-Vicryl sutures placed at the umbilical closure, re- approximating the hernia defect adequately. The umbilical stalk was performed for umbilicoplasty. The wound was irrigated, and all the skin incisions were reapproximated with skin gino. All counts for sponges, needles, and instruments were correct at the conclusion of this operative case. All incisions were injected with a total of with 0.5% Marcaine. The wounds were dressed dermabond. Patient was taken extubated to the PACU in stable. Please note that voice recognition software was used to transcribe this note and inadvertent errors might persist in spite of review and editing. I am obliged to you for your attention. I am thankful to you for allowing me to participate with you in this care of this patient.
[2020-11-15] MEDS ORDERED: LACTATED RINGERS 1,000 ML IV ONE (19:50)
[2020-11-15] MEDS ORDERED: LACTATED RINGERS 1,000 ML IV SCH ×2 (20:00→21:00)
--- NOTE | 2020-11-15 20:01 | HISTORY & PHYSICAL EXAMINATION ---
History and Physical - History and Physical Admit Date: 11/15/20 Procedure Date: 11/15/20 Planned Procedure: 1. Laparoscopic cholecystectomy 2. Diagnostic laparoscopy 3. Intraoperative cholangiogram 4. Other indicated procedure Pre-Op Diagnosis: Acute cholecystitis; cholelithiasis; abdominal pain Procedure Performed: 1. Diagnostic laparoscopy 2. Laparoscopic adhesiolysis 3. Open umbilical hernia repair 4. Laparoscopic cholecystectomy 5. Intraoperative cholangiogram 6. Transversus abdominis plane block per anesthesia Post Op Diagnosis: Same; acute on chronic cholecystitis w/ dense inflammatory change; NL gra - Procedure Note Primary Surgeon: Jeni Secondary Surgeon: Shantelle Anesthesia Provider: Boone Anesthesia Technique: General ET tube, Local Pathology: Gall bladder Estimated Blood Loss (mL): 200 Indications: See EMR Findings: 1. Dense adhesions 2. Acute on chronic cholecystitis 3. Normal cholangiogram 4. Critical view of safety achieved Complications: None
--- NOTE | 2020-11-15 20:02 | ANESTHESIA POST OP EVALUATION ---
Anesthesia Post Eval - Post Anesthesia Eval Vitals: Last Vital Signs Temp 36.9 C 11/15/20 19:50 Pulse 82 11/15/20 20:00 Resp 15 11/15/20 20:00 BP 139/95 H 11/15/20 20:00 Pulse Ox 100 11/15/20 20:00 CV Function Including HR & BP: Stable Pain Control: Satisfactory Nausea & Vomiting: Negative Mental Status: Baseline Respiratory Status: Airway Patent Hydration Status: Satisfactory Anesthesia Complications: None
[2020-11-15] MEDS ORDERED: MORPHINE 2 MG/ML CARPUJECT IVP PRN (20:03)
[2020-11-15] MEDS ORDERED: METOCLOPRAMIDE 10 MG/2 ML VIAL IVP PRN (20:03)
[2020-11-15] MEDS ORDERED: ATROPINE ABBOJECT 1 MG/10 ML SYRINGE IVP PRN (20:03)
[2020-11-15] MEDS ORDERED: ePHEDrine 50 MG/ML VIAL IVP PRN (20:03)
[2020-11-15] MEDS ORDERED: fentaNYL 100 MCG/2 ML VIAL IVP PRN (20:03)
[2020-11-15] MEDS ORDERED: NALOXONE 0.4 MG/ML VIAL IVP PRN (20:03)
[2020-11-16] MEDS: methocarbamoL 500 MG TABLET PO SCH ×4 (00:12→18:12)
[2020-11-16] MEDS: D5NS W/20 MEQ KCL 1,000 ML IV SCH ×3 (04:53→13:54)
[2020-11-16 06:19] LABS: BASOPHILS % (AUTO) 0.1 %; EOSINOPHILS % (AUTO) 1.9 %; HCT - HEMATOCRIT 36.9 % (42.0-52.0); HGB - HEMOGLOBIN 11.9 g/dL (14.0-18.0); LYMPHOCYTES % (AUTO) 6.8 %; MEAN CORPUSCULAR HEMOGLOBIN 27.9 pg (27.0-31.0); MEAN CORPUSCULAR HGB CONC 32.2 g/dL (32.0-36.0); MEAN CORPUSCULAR VOLUME 86.6 fL (80.0-94.0); MEAN PLATELET VOLUME 8.8 fL (7.4-11.4); MONOCYTES % (AUTO) 5.6 %; NEUTROPHILS % (AUTO) 85.4 %; PLT - PLATELET COUNT 194 10^3/uL (130-450); RED BLOOD COUNT 4.26 10^6/uL (4.70-6.10); RED CELL DISTRIBUTION WIDTH 12.1 % (12.0-15.0); WHITE BLOOD COUNT 9.8 x10^3/uL (4.8-10.8)
[2020-11-16 06:25] LABS: ABNORMAL LYMPHS % (MANUAL) 0 %; BAND NEUTROPHILS % (MANUAL) 0 %
[2020-11-16 06:35] LABS: ALBUMIN 3.5 g/dL (3.2-5.5); ALBUMIN/GLOBULIN RATIO 1.1 (1.0-2.2); BILIRUBIN,TOTAL 0.7 mg/dL (0.2-1.0); CALCIUM 8.7 mg/dL (8.5-10.3); POTASSIUM 4.6 mmol/L (3.5-5.0); TOTAL PROTEIN 6.6 g/dL (6.7-8.2)
[2020-11-16 06:46] LABS: DIFFERENTIAL COMMENT MANUAL DIFFERENTIAL; LYMPHOCYTES # (MANUAL) 1.1 10^3/uL (1.5-3.5); LYMPHOCYTES % (MANUAL) 11 %; MONOCYTES # (MANUAL) 0.3 10^3/uL (0.0-1.0); NEUTROPHILS # (MANUAL) 8.4 10^3/uL (1.5-6.6); PLATELET ESTIMATE, MANUAL NORMAL (130-450,000) (NORMAL); PLATELET MORPHOLOGY NORMAL APPEARANCE (NORMAL); RBC MORPHOLOGY (MULTIPLE) NORMAL APPEARANCE (NORMAL); WBC MORPHOLOGY (MULTIPLE) NORMAL APPEARANCE (NORMAL)
[2020-11-16] MEDS: ACETAMINOPHEN 1,000 MG/100 ML 100 ML IV SCH ×2 (06:55)
[2020-11-16] MEDS: PIPERACILLIN/TAZOBACTAM 3.375 GM in SODIUM CHLORIDE 0.9% MINIBAG 100 ML IV SCH ×2 (07:05→14:25)
[2020-11-16] MEDS ORDERED: ACETAMINOPHEN 500 MG TABLET PO PRN (12:00)
[2020-11-16 15:50] VITALS: BP 127/85
== END 2020-11-16 18:51 | disposition home or self-care (01) | DRG 419 ==
LOC: ED 22:30 → MS2 11-15 04:20
PROVIDERS: ADMIT Surgery; ATTEND Surgery
PROC: 0FT44ZZ Resection of Gallbladder, Percutaneous Endoscopic Approach (ICD-10-PCS; principal; 2020-11-15 12:00)
DX: K80.00 Calculus of gallbladder with acute cholecystitis without obstruction (principal); K80.12 Calculus of gallbladder with acute and chronic cholecystitis without obstruction; K42.9 Umbilical hernia without obstruction or gangrene; F20.9 Schizophrenia, unspecified; Z79.899 Other long term (current) drug therapy
CPT/HCPCS: 36415; 71045; 74177; 74300; 76705; 80048; 80053; 81003; 83690; 84443; 85025; 85651; 86140; 93005; 96365; 96372; 96375; 99284; 99285; A9270; G0378; J0131; J1170; J1650; J7120; Q9961; Q9967; 81001; 87086

== ENCOUNTER 2021-08-29 09:42 | Outpatient (CLI) | payer MEDICARE, MEDICAID ==
[2021-08-29 12:03] LABS: BASOPHILS # (AUTO) 0.1 10^3/uL (0.0-0.1); BASOPHILS % (AUTO) 1.2 %; BILIRUBIN,URINE NEGATIVE (NEGATIVE); EOSINOPHILS # (AUTO) 0.8 10^3/uL (0.0-0.7); EOSINOPHILS % (AUTO) 11.9 %; GLUCOSE, URINE (UA) NEGATIVE (NEGATIVE); HCT - HEMATOCRIT 41.6 % (42.0-52.0); HGB - HEMOGLOBIN 13.6 g/dL (14.0-18.0); KETONES,URINE (UA) NEGATIVE (NEGATIVE); LEUKOCYTE ESTERASE, URINE NEGATIVE (NEGATIVE); LYMPHOCYTES # (AUTO) 1.7 10^3/uL (1.5-3.5); LYMPHOCYTES % (AUTO) 25.3 %; MEAN CORPUSCULAR HGB CONC 32.7 g/dL (32.0-36.0); MEAN CORPUSCULAR VOLUME 85.6 fL (80.0-94.0); MEAN PLATELET VOLUME 8.8 fL (7.4-11.4); MONOCYTES # (AUTO) 0.4 10^3/uL (0.0-1.0); MONOCYTES % (AUTO) 6.3 %; NEUTROPHILS # (AUTO) 3.7 10^3/uL (1.5-6.6); NEUTROPHILS % (AUTO) 55.2 %; NITRITE,URINE NEGATIVE (NEGATIVE); OCCULT BLOOD,URINE NEGATIVE (NEGATIVE); PH,URINE 5.5 PH (5.0-7.5); PLT - PLATELET COUNT 216 10^3/uL (130-450); PROTEIN,URINE NEGATIVE (NEGATIVE); RED BLOOD COUNT 4.86 10^6/uL (4.70-6.10); RED CELL DISTRIBUTION WIDTH 12.2 % (12.0-15.0); UROBILINOGEN,URINE 0.2 (NORMAL) E.U./dL (NORMAL); WHITE BLOOD COUNT 6.8 x10^3/uL (4.8-10.8)
[2021-08-29 12:24] LABS: ALBUMIN 4.4 g/dL (3.2-5.5); ALBUMIN/GLOBULIN RATIO 1.4 (1.0-2.2); ALKALINE PHOSPHATASE 61 IU/L (42-121); ALT ALANINE AMINOTRANSFERASE 25 IU/L (10-60); AST ASPARTATE AMINOTRANSFERASE 24 IU/L (10-42); BILIRUBIN,TOTAL 0.3 mg/dL (0.2-1.0); BUN - BLOOD UREA NITROGEN 24 mg/dL (6-20); CALCIUM 9.6 mg/dL (8.5-10.3); CARBON DIOXIDE - CO2 28 mmol/L (21-32); CHLORIDE 104 mmol/L (101-111); CHOL/HDL RATIO 2.8 (<5.0); CHOLESTEROL 185 mg/dL; ESTIMATED AVERAGE GLUCOSE 105 mg/dL (70-100); GFR - MDRD 89 (>89); GLUCOSE 85 mg/dL (70-100); HDL CHOLESTEROL 65 mg/dL; HEMOGLOBIN A1c% 5.3 % (4.27-6.07); LDL CHOLESTEROL,CALCULATED 106 mg/dL; LDL/HDL RATIO 1.6 (<3.6); POTASSIUM 4.1 mmol/L (3.5-5.0); SODIUM 140 mmol/L (135-145); TOTAL PROTEIN 7.5 g/dL (6.7-8.2); TRIGLYCERIDES 68 mg/dL; VLDL CHOLESTEROL 14 mg/dL
[2021-08-29 12:28] LABS: THYROID STIMULATING HORMONE 2.23 uIU/mL (0.34-5.60)
[2021-08-29 12:29] LABS: CLARITY,URINE CLEAR (CLEAR); RBC,URINE None Seen /HPF (0-5); WBC,URINE 0-3 /HPF (0-3)
[2021-08-29 12:30] LABS: BACTERIA,URINE None Seen /HPF (None Seen); SQUAMOUS EPITHELIAL CELL,UR RARE Squamous (<= Few)
== END 2021-08-29 09:43 | disposition home or self-care (01) ==
LOC: LAB.N 09:42
PROVIDERS: ATTEND Nurse Practitioner
DX: R53.83 Other fatigue (principal); Z13.220 Encounter for screening for lipoid disorders; E66.9 Obesity, unspecified; F39 Unspecified mood [affective] disorder
CPT/HCPCS: 36415; 80053; 80061; 81001; 83036; 83721; 84443; 85025; 87086

== ENCOUNTER 2023-11-15 16:48 | Outpatient (CLI) | payer MEDICARE, MEDICAID | END 2023-11-15 23:59 | disposition critical access hospital (66) | LOC: EMS 16:48 | DX: R44.0 Auditory hallucinations (principal); R44.1 Visual hallucinations; R45.850 Homicidal ideations | CPT/HCPCS: A0425; A0429 ==

== ENCOUNTER 2023-11-15 17:08 | Emergency (ER) | payer MEDICARE, MEDICAID ==
--- NOTE | 2023-11-15 17:20 | ED Physician Documentation ---
History of Present Illness - Stated complaint Stated Complaint: MHE - History obtained from History obtained from: Patient, EMS - Additonal information Additional information: 28-year-old with schizophrenia presents with decompensation with auditory hallucinations. He states bad people are telling him bad things and he is thinking about hurting others. In contrast EMS he tells me he has no SI or HI. He has been compliant with his medications. He is not exactly sure what medicine he is on but when I looked at the chart and asked if it was Risperdal which she has been on in the past he says he thinks so. PD PAST MEDICAL HISTORY - Past Medical History Cardiovascular: None Respiratory: None Neuro: None Endocrine/Autoimmune: None GI: None : None HEENT: None Psych: Schizophrenia Musculoskeletal: None Derm: None - Past Surgical History Past Surgical History: Yes HEENT: Other - Present Medications Home Medications: Ambulatory Orders Medication Instructions Recorded Confirmed polyethylene glycoL 3350 [Miralax] 17 gm PO DAILY PRN #10 packet 02/04/16 11/15/20 risperiDONE [Risperidone] 3 mg PO BID 02/03/20 11/15/20 Amox/Clav 875/125 [Augmentin] 1 each PO Q12H #20 tablet 11/16/20 oxyCODONE [Roxicodone] 5 mg PO Q6H PRN #24 tablet 11/16/20 - Allergies Allergies/Adverse Reactions: Allergies Allergy/AdvReac Type Severity Reaction Status Date / Time No Known Drug Allergies Allergy Verified 11/15/23 17:22 - Social History Does the pt smoke?: No Smoking Status: Never smoker Does the pt drink ETOH?: No Does the pt have substance abuse?: No - Immunizations Immunizations are current?: Yes PD ED PE NORMAL - Vitals Vital signs reviewed: Yes - General General: Alert and oriented X 3, Other (Slow stuttering speech starting most sentences with "uh uh uh uh uh uh uh" and then an answer) - HEENT HEENT: PERRL, EOMI - Neck Neck: Supple, no meningeal sign, No bony TTP - Cardiac Cardiac: RRR, No murmur - Respiratory Respiratory: No respiratory distress, Clear bilaterally - Abdomen Abdomen: Non tender - Derm Derm: Normal color, Warm and dry - Extremities Extremities: No edema, No calf tenderness / cord - Neuro Neuro: Alert and oriented X 3 Eye Opening: Spontaneous Motor: Obeys Commands Verbal: Oriented GCS Score: 15 Results - Vitals Vitals: Vital Signs - 24 hr 11/15/23 17:17 Temperature 36.9 C Heart Rate 88 Respiratory 16 Rate Blood Pressure 125/82 H O2 Saturation 100 Oxygen O2 Source Room air - EKG (time done) 1805 EKG releavant findings:: EKG personally interpreted by author of this note. Relevant findings are: Rate: Rate (enter#) (78) Rhythm: NSR Norphlet: Normal Intervals: Normal NV QRS: Normal Ischemia: Normal ST segments - Labs Labs: Laboratory Tests 11/15/23 11/15/23 11/15/23 17:28 17:28 17:45 WBC 8.4 RBC 5.34 Hgb 14.8 Hct 45.0 MCV 84.3 MCH 27.7 MCHC 32.9 RDW 12.5 Plt Count 240 MPV 8.4 Neut # (Auto) 6.1 Lymph # (Auto) 1.6 Barron # (Auto) 0.4 Eos # (Auto) 0.2 Baso # (Auto) 0.1 Absolute Nucleated RBC 0.00 Nucleated RBC % 0.0 Sodium 140 Potassium 3.8 Chloride 103 Carbon Dioxide 29 Anion Gap 8.0 BUN 21 H Creatinine 1.5 H Estimated GFR (MDRD) 55 L Glucose 98 Calcium 9.8 Magnesium 1.9 Total Bilirubin 0.4 AST 20 ALT 20 Alkaline Phosphatase 68 Total Creatine Kinase 130 Total Protein 7.4 Albumin 4.7 Globulin 2.7 Albumin/Globulin Ratio 1.7 Lipase 26 TSH 1.89 Urine Color YELLOW Urine Clarity CLEAR Urine pH 6.0 Ur Specific [place] 1.025 Urine Protein NEGATIVE Urine Glucose (UA) NEGATIVE Urine Ketones NEGATIVE Urine Occult Blood NEGATIVE Urine Nitrite NEGATIVE Urine Bilirubin NEGATIVE Urine Urobilinogen 0.2 (NORMAL) Ur Leukocyte Esterase NEGATIVE Ur Microscopic Review NOT INDICATED Urine Culture Comments NOT INDICATED Salicylates < 1.5 Urine Opiates Screen NEGATIVE Ur Buprenorphine Scrn NEGATIVE Ur Oxycodone Screen NEGATIVE Urine Methadone Screen NEGATIVE Acetaminophen 0.1 Ur Barbiturates Screen NEGATIVE Ur Tricyclics Screen NEGATIVE Ur Phencyclidine Scrn NEGATIVE Ur Amphetamine Screen NEGATIVE U Methamphetamines Scrn NEGATIVE U Benzodiazepines Scrn NEGATIVE Urine Cocaine Screen NEGATIVE U Cannabinoids Screen NEGATIVE Ur Drug Screen Comment CUTOFF CONC BELOW: Ethyl Alcohol < 10.0 SARS-CoV-2 (PCR) 11/15/23 17:45 WBC RBC Hgb Hct MCV MCH MCHC RDW Plt Count MPV Neut # (Auto) Lymph # (Auto) Barron # (Auto) Eos # (Auto) Baso # (Auto) Absolute Nucleated RBC Nucleated RBC % Sodium Potassium Chloride Carbon Dioxide Anion Gap BUN Creatinine Estimated GFR (MDRD) Glucose Calcium Magnesium Total Bilirubin AST ALT Alkaline Phosphatase Total Creatine Kinase Total Protein Albumin Globulin Albumin/Globulin Ratio Lipase TSH Urine Color Urine Clarity Urine pH Ur Specific [place] Urine Protein Urine Glucose (UA) Urine Ketones Urine Occult Blood Urine Nitrite Urine Bilirubin Urine Urobilinogen Ur Leukocyte Esterase Ur Microscopic Review Urine Culture Comments Salicylates Urine Opiates Screen Ur Buprenorphine Scrn Ur Oxycodone Screen Urine Methadone Screen Acetaminophen Ur Barbiturates Screen Ur Tricyclics Screen Ur Phencyclidine Scrn Ur Amphetamine Screen U Methamphetamines Scrn U Benzodiazepines Scrn Urine Cocaine Screen U Cannabinoids Screen Ur Drug Screen Comment Ethyl Alcohol SARS-CoV-2 (PCR) NOT DETECTED PD Medical Decision Making - ED course ED course: 28-year-old presents with decompensated schizophrenia. He is amenable to talking with telepsych which seems appropriate at this point. He was seen by telepsych who did recommend inpatient hospitalization. And arrangements were made for him to go to [facility] under the care oF mili Grayson. Cobras were completed and he is stable for transport. Departure - Departure Disposition: 65 Psych Hosp/Unit DC/Xfer Clinical Impression: Schizophrenia Qualifiers: Schizophrenia type: unspecified Qualified Code(s): F20.9 - Schizophrenia, unspecified Condition: Stable
[2023-11-15 17:23] VITALS: O2SAT 100
[2023-11-15 17:38] LABS: BASOPHILS # (AUTO) 0.1 10^3/uL (0.0-0.1); BASOPHILS % (AUTO) 0.8 %; EOSINOPHILS # (AUTO) 0.2 10^3/uL (0.0-0.7); EOSINOPHILS % (AUTO) 1.8 %; HGB - HEMOGLOBIN 14.8 g/dL (14.0-18.0); LYMPHOCYTES # (AUTO) 1.6 10^3/uL (1.5-3.5); LYMPHOCYTES % (AUTO) 19.4 %; MEAN CORPUSCULAR HEMOGLOBIN 27.7 pg (27.0-31.0); MEAN CORPUSCULAR HGB CONC 32.9 g/dL (32.0-36.0); MEAN CORPUSCULAR VOLUME 84.3 fL (80.0-94.0); MEAN PLATELET VOLUME 8.4 fL (7.4-11.4); MONOCYTES # (AUTO) 0.4 10^3/uL (0.0-1.0); MONOCYTES % (AUTO) 4.8 %; NEUTROPHILS # (AUTO) 6.1 10^3/uL (1.5-6.6); PLT - PLATELET COUNT 240 10^3/uL (130-450); RED BLOOD COUNT 5.34 10^6/uL (4.70-6.10); RED CELL DISTRIBUTION WIDTH 12.5 % (12.0-15.0); WHITE BLOOD COUNT 8.4 x10^3/uL (4.8-10.8)
[2023-11-15 17:49] LABS: BILIRUBIN,URINE NEGATIVE (NEGATIVE); GLUCOSE, URINE (UA) NEGATIVE (NEGATIVE); KETONES,URINE (UA) NEGATIVE (NEGATIVE); LEUKOCYTE ESTERASE, URINE NEGATIVE (NEGATIVE); NITRITE,URINE NEGATIVE (NEGATIVE); OCCULT BLOOD,URINE NEGATIVE (NEGATIVE); PROTEIN,URINE NEGATIVE (NEGATIVE); UROBILINOGEN,URINE 0.2 (NORMAL) E.U./dL (NORMAL)
[2023-11-15 17:56] LABS: CLARITY,URINE CLEAR (CLEAR)
[2023-11-15 18:05] LABS: AMPHETAMINE SCREEN,URINE NEGATIVE (NEGATIVE); BARBITURATE SCREEN,UR NEGATIVE (NEGATIVE); BENZODIAZEPINES SCREEN, URINE NEGATIVE (NEGATIVE); BUPRENORPHINE SCREEN, URINE NEGATIVE (NEGATIVE); COCAINE SCREEN URINE NEGATIVE (NEGATIVE); METHADONE SCREEN, URINE NEGATIVE (NEGATIVE); METHAMPHETAMINES SCREEN, URINE NEGATIVE (NEGATIVE); OPIATE SCREEN, URINE NEGATIVE (NEGATIVE); OXYCODONE SCREEN, URINE NEGATIVE (NEGATIVE); THC CANNABINOID SCREEN, URINE NEGATIVE (NEGATIVE); TRICYCLIC ANTIDEPRESSANT,URINE NEGATIVE (NEGATIVE)
[2023-11-15 18:08] LABS: THYROID STIMULATING HORMONE 1.89 uIU/mL (0.34-5.60)
[2023-11-15 18:30] LABS: MAGNESIUM 1.9 mg/dL (1.7-2.3)
[2023-11-15 18:37] LABS: ACETAMINOPHEN 0.1 ug/mL; ALBUMIN 4.7 g/dL (3.2-5.5); ALBUMIN/GLOBULIN RATIO 1.7 (1.0-2.2); ALKALINE PHOSPHATASE 68 IU/L (42-121); ALT ALANINE AMINOTRANSFERASE 20 IU/L (10-60); AST ASPARTATE AMINOTRANSFERASE 20 IU/L (10-42); BILIRUBIN,TOTAL 0.4 mg/dL (0.2-1.0); BUN - BLOOD UREA NITROGEN 21 mg/dL (6-20); CALCIUM 9.8 mg/dL (8.5-10.3); CARBON DIOXIDE - CO2 29 mmol/L (21-32); CHLORIDE 103 mmol/L (101-111); CK- CREATINE KINASE 130 IU/L (30-223); CREATININE 1.5 mg/dL (0.6-1.3); ETOH - ETHANOL < 10.0 mg/dL; GFR - MDRD 55 (>89); GLUCOSE 98 mg/dL (74-104); LIPASE 26 U/L (11-82); POTASSIUM 3.8 mmol/L (3.5-4.5); SODIUM 140 mmol/L (135-145); TOTAL PROTEIN 7.4 g/dL (6.4-8.9)
[2023-11-15 18:38] LABS: SALICYLATE < 1.5 mg/dL
--- NOTE | 2023-11-15 19:23 | TELEPSYCH PHYS NOTE ---
[facility] Telepsych Consult Consult Date: 11/15/23 Name of Referring Provider:: Dr. Castellano Reason for Consult: Psychiatric Evaluation - Suicide Risk Sreening (ASQ Tool) In the past few weeks, have you wished you were ?: No In the past few weeks, have you felt that you or your family would be better off if you were ?: No In the past week, have you been having thoughts about killing yourself?: No Have you ever tried to kill yourself?: Yes - Assessment Language: Azeri Phlebotomy Technician Required: No Cultural, Lutheran or Spiritual Preferences: None Chief Complaint: "I had a kitchen knife and I was having thoughts about hurting other people." History of Present Illness: Brenda is a 28-year-old male who presents to the [facility] ER for mental health evaluation. He tells me that he had a kitchen knife at home today and started having thoughts about stabbing someone so he called 911. He says he has had thoughts like this in the past. He also reports command auditory hallucinations. He has had some stressors with being bullied at work. It is unclear if he has been compliant with his medications as he is difficult to understand at times. It does appear that he has been prescribed Risperdal in the past. He says that he has a history of past suicide attempts and psychiatric hospitalizations. He denies issues with sleep or appetite. He denies drug or alcohol abuse. No suicidal ideation today. Suicide Ideation - Homicide Ideation - Self Harm: Denies suicidal ideation. Patient has been having thoughts of stabbing others with a kitchen knife today. No self-harm behavior. Psychiatric History - Treatment History: Patient has a documented history of schizophrenia. He has been prescribed risperdal in the past but it is unclear if he is currently taking this. He does have a past history of suicide attempt by hanging and psychiatric hospitalizations. Community Resources Accessed: None Family Psych History/ History of suicide: Unknown Nutritional Status: No nutritional concerns - Medication & Allergies Home Medications: Ambulatory Orders Medication Instructions Recorded Confirmed polyethylene glycoL 3350 [Miralax] 17 gm PO DAILY PRN #10 packet 02/04/16 11/15/20 risperiDONE [Risperidone] 3 mg PO BID 02/03/20 11/15/20 Amox/Clav 875/125 [Augmentin] 1 each PO Q12H #20 tablet 11/16/20 oxyCODONE [Roxicodone] 5 mg PO Q6H PRN #24 tablet 11/16/20 Allergies/Adverse Reactions: Allergies Allergy/AdvReac Type Severity Reaction Status Date / Time No Known Drug Allergies Allergy Verified 11/15/23 17:22 - Drug & Alcohol History Does patient have Drug/ETOH history or addictive behavior?: No Use: Uses substance without health or social issues: NONE Dependence: Experiences withdrawal or developed tolerances: NONE - Trauma Does the patient have a history of trauma, abuse, neglect or explotation?: No - Personal Information Does the patient have a history or present tendencies for violence?: None Services History: None Does patient have any Legal Charges or Investigations?: No Environment & Living Situation - Social, Peer-Group (Note): At home Environment & Living Situation - Social, Peer-Group (Notes): Patient says he lives with his mother. Marital Status - Family Circumstances: Single Stressors - Financial Concerns: Patient says he has been bullied while at work. Education: Completed high school Occupation: Works at [employer] - Interdisciplinary Input: ER notes reviewed. - Medical History Psychiatric: reports: Schizophrenia Neurological: reports: None Eyes, Ears, Nose, Throat: reports: None Cardiovascular: reports: None Respiratory: reports: None Gastrointestinal: reports: None Urinary: reports: None Musculoskeletal: reports: None Skin: reports: None - Surgical History HEENT: reports: Other Childhood History: No known trauma or abuse reported. - Mental Status Exam Appearance and Attire: 28-year-old male who is sitting up on hospital bed and is wearing hospital scrubs. Hygiene and grooming are appropriate for situation. Attitude and Behavior: Anxious but cooperative Speech: Stutters Affect and Mood: "sad" and affect is anxious Association and Thought Process: Logical, organized Thought Content: No SI but endorses homicidal ideation with thoughts of stabbing others Perception: Endorses command auditory hallucinations telling him to harm others. Sensorium, memory and orientation: Awake, alert and oriented to person, place and situation. Intellectual - Cognitive functioning: Borderline Insight and Judgement: fair/fair Emotional and Behavioral Functioning: Increased sadness and anxiety related to recent bullying Ability to Self-Care: Independent - Personal Goals Short-term Goals: None reported - Risk/Protective Factors Risk Factors: Trigger events leading to humiliation, shame and/or despair Protective Factors / Internal: Identifies reasons for living Protective Factors / External: Engaged in work or school - Plan Impression/Risk Assessment: Brenda is a 28-year-old male with a history of schizophrenia who is reporting homicidal thoughts. He tells me that he had a kitchen knife at home today and started having thoughts about stabbing someone so he called 911. He says he has had thoughts like this in the past. He also reports command auditory hallucinati ons. He has had some stressors with being bullied at work. It is unclear if he has been compliant with his medications as he is difficult to understand at times. It does appear that he has been prescribed Risperdal in the past. He says that he has a history of past suicide attempts and psychiatric hospitalizations. Risk to self and/or others is high at this time. He would benefit from inpatient hospitalization for safety and stabilization. Treatment - Therapy Recommendations: Inpatient psychiatric hospitalization is recommended for safety and stabilization. Pharmacological Recommendations: Please confirm with patient's mother or his pharmacy which medications (if any) patient has been taking recently in order to continue him on his current regimen. May give Risperdal 2mg po or Zyprexa 5mg po tonight in the meantime. - Problem List (1) Schizophrenia Qualifiers: Schizophrenia type: unspecified Qualified Code(s): F20.9 - Schizophrenia, unspecified - Time Spent & Provider Location Telepsych consultation conducted via videoconferencing: Yes List names and roles of persons who participated in consult: Gisela Molina NP Telepsych Provider Location: [place] Time Spent (Minutes): 40
[2023-11-16 06:20] VITALS: BP 116/86
== END 2023-11-16 06:00 ==
LOC: EDUNIT# → ED 17:08
DX: F20.9 Schizophrenia, unspecified (principal); Z79.899 Other long term (current) drug therapy
CPT/HCPCS: 36415; 80053; 80143; 80306; 81003; 82550; 83690; 83735; 84443; 85025; 87635; 93005; 99285; G0425; G0480; Q3014; 80179; 81001; 82077; 87086

== ENCOUNTER 2023-11-20 13:08 | Outpatient (CLI) | payer MEDICARE, MEDICAID | END 2023-11-20 23:59 | disposition EMS.NT | LOC: EMS 13:08 | DX: Z04.6 Encounter for general psychiatric examination, requested by authority (principal) ==